=== PATIENT | male | born 2000 | race African-American/Black ===

== ENCOUNTER 2018-06-21 16:39 | Emergency (ER) | payer SELFPAY ==
[~2018-06-21] VITALS: Ht 180.3 cm; Wt 64.4 kg
[2018-06-21 18:15] VITALS: BP 123/58
--- NOTE | 2018-06-21 18:35 | PHYS DOC ---
Past Medical History Past Medical History: No Pertinent History Past Surgical History: No Surgical History Alcohol Use: None Drug Use: Marijuana Adult General Chief Complaint Chief Complaint: SEXUALLY TRANSMITTED DISEASE HPI HPI Patient is a 17 year old male who presents with having sex with a partner that has had trichomonis in the past and has continued having vaginal problems. Patient currently denies any urinary or genital symptoms. Review of Systems Review of Systems Constitutional: Denies fever or chills [] Eyes: Denies change in visual acuity, redness, or eye pain [] HENT: Denies nasal congestion or sore throat [] Respiratory: Denies cough or shortness of breath [] Cardiovascular: No additional information not addressed in HPI [] GI: Denies abdominal pain, nausea, vomiting, bloody stools or diarrhea [] : Denies dysuria or hematuria [] Musculoskeletal: Denies back pain or joint pain [] Integument: Denies rash or skin lesions [] Neurologic: Denies headache, focal weakness or sensory changes [] Endocrine: Denies polyuria or polydipsia [] All other systems were reviewed and found to be within normal limits, except as documented in this note. Current Medications Current Medications Current Medications Medications (Trade) Dose Ordered Sig/Emily Start Time Stop Time Status Last Admin Dose Admin Azithromycin (Zithromax) 1,000 mg 1X ONCE 06/21/18 19:00 06/21/18 19:01 DC 06/21/18 18:53 1,000 MG Ceftriaxone Sodium (Rocephin Im) 250 mg 1X ONCE 06/21/18 19:00 06/21/18 19:01 DC 06/21/18 18:54 250 MG Allergies Allergies Allergies Coded Allergies Type Severity Reaction Last Updated Verified No Known Drug Allergies 06/21/18 No Physical Exam Physical Exam Constitutional: Well developed, well nourished, no acute distress, non-toxic appearance. [] HENT: Normocephalic, atraumatic, bilateral external ears normal, oropharynx moist, no oral exudates, nose normal. [] Eyes: PERRLA, EOMI, conjunctiva normal, no discharge. [] Neck: Normal range of motion, no tenderness, supple, no stridor. [] Cardiovascular:Heart rate regular rhythm, no murmur [] Lungs & Thorax: Bilateral breath sounds clear to auscultation [] Abdomen: Bowel sounds normal, soft, no tenderness, no masses, no pulsatile masses. [] Skin: Warm, dry, no erythema, no rash. [] Back: No tenderness, no CVA tenderness. [] Extremities: No tenderness, no cyanosis, no clubbing, ROM intact, no edema. [] Neurologic: Alert and oriented X 3, normal motor function, normal sensory function, no focal deficits noted. [] Psychologic: Affect normal, judgement normal, mood normal. [] Current Patient Data Vital Signs Vital Signs Date Time Temp Pulse Resp B/P (MAP) Pulse Ox O2 Delivery O2 Flow Rate FiO2 06/21/18 18:15 98.8 62 16 123/58 (79) Room Air 98.8 EKG EKG [] Radiology/Procedures Radiology/Procedures [] Course & Med Decision Making Course & Med Decision Making Patient states he has had sex with a partner that has had Trichomonas in the past and that his partner has still had vaginal problems in vaginal discharge. The patient states that her keeps calling it a yeast infection but is not getting any better and he is worried that it is an STD. Patient currently denies any genital lesions, blisters, discharge, or urinary symptoms. Patient denies any fever or abdominal pain. Patient states he would like to be treated with antibiotics today in the ED. Patient's urine is sent off for STD testing. Patient is given azithromycin and Rocephin in the ED today. Patient is told he will be called in 48 hours if the results are positive. Patient is told to use safe sex. [] Dragon Disclaimer Dragon Disclaimer This electronic medical record was generated, in whole or in part, using a voice recognition dictation system. Departure Departure Impression: Primary Impression: Sexually transmitted disease Disposition: 01 HOME, SELF-CARE Condition: STABLE Referrals: NO PCP (PCP) Patient Instructions: Sexually Transmitted Diseases (STD) In Additional Instructions: Follow up with your primary care if needed. Practice safe sex. FARRAH IBARRA APRN Jun 21, 2018 18:35
[2018-06-21] MEDS: AZITHROMYCIN 250 MG TABLET. PO ONE (18:53)
[2018-06-21] MEDS: cefTRIAXone IM 250 MG VIAL IM ONE (18:54)
== END 2018-06-21 19:22 | disposition home or self-care (01) ==
LOC: ER 16:39
DX: A64 Unspecified sexually transmitted disease (principal)
CPT/HCPCS: 87491; 87591; 96372; 99284; J0696; Q0144

== ENCOUNTER 2018-08-20 04:09 | Emergency (ER) | payer SELFPAY ==
[~2018-08-20] VITALS: Ht 180.3 cm; Wt 63.5 kg
[2018-08-20 04:20] VITALS: BP 140/73
[2018-08-20 04:58] LABS: FECAL OB PT NEGATIVE (NEG)
[2018-08-20] MEDS ORDERED: HYDR10FO3 RC (05:13)
--- NOTE | 2018-08-20 05:13 | PHYS DOC ---
Past Medical History Past Medical History: No Pertinent History Past Surgical History: No Surgical History Alcohol Use: None Drug Use: Marijuana Adult General Chief Complaint Chief Complaint: OTHER COMPLAINTS HPI HPI Patient is a 17 year old male who presents with rectal pain. This started approximately 2 months ago after receiving prophylactic antibiotics due to patient's concern that he may have contracted an STD. Patient noted approximately a month ago he had several days where he noticed blood on the toilet paper after wiping. Patient denies any black tarry stools, denies anal receptive intercourse. He has not tried any home medicines. Denies any fever. All movements seem to make it worse. He reports some itching. Denies any fever, denies any weight change.[] Review of Systems Review of Systems Constitutional: Denies fever or chills [] Eyes: Denies change in visual acuity, redness, or eye pain [] HENT: Denies nasal congestion or sore throat [] Respiratory: Denies cough or shortness of breath [] Cardiovascular: No chest pain or palpitations[] GI: Denies abdominal pain, nausea, vomiting, bloody stools or diarrhea [] : Denies dysuria or hematuria [] Musculoskeletal: Denies back pain or joint pain [] Integument: Denies rash or skin lesions [] Neurologic: Denies headache, focal weakness or sensory changes [] Endocrine: Denies polyuria or polydipsia [] All other systems were reviewed and found to be within normal limits, except as documented in this note. Allergies Allergies Allergies Coded Allergies Type Severity Reaction Last Updated Verified No Known Drug Allergies 06/21/18 No Physical Exam Physical Exam Constitutional: Well developed, well nourished, no acute distress, non-toxic appearance. [] HENT: Normocephalic, atraumatic, bilateral external ears normal, oropharynx moist, no oral exudates, nose normal. [] Eyes: PERRLA, EOMI, conjunctiva normal, no discharge. [] Neck: Normal range of motion, no tenderness, supple, no stridor. [] Cardiovascular:Heart rate regular rhythm, no murmur [] Lungs & Thorax: Bilateral breath sounds clear to auscultation [] Abdomen: Bowel sounds normal, soft, no tenderness, no masses, no pulsatile masses. Rectal exam, no tears or fissures noted. No external hemorrhoids. Normal tone. Prostate is smooth, no enlargement.[] Skin: Warm, dry, no erythema, no rash. [] Back: No tenderness, no CVA tenderness. [] Extremities: No tenderness, no cyanosis, no clubbing, ROM intact, no edema. [] Neurologic: Alert and oriented X 3, normal motor function, normal sensory function, no focal deficits noted. [] Psychologic: Affect normal, judgement normal, mood normal. [] Current Patient Data Vital Signs Vital Signs Date Time Temp Pulse Resp B/P (MAP) Pulse Ox O2 Delivery O2 Flow Rate FiO2 08/20/18 04:20 98.3 66 16 140/73 (95) 99 Room Air 98.3 Lab Values Laboratory Tests Test 08/20/18 04:40 Stool Occult Blood Negative (NEG) EKG EKG [] Radiology/Procedures Radiology/Procedures [] Course & Med Decision Making Course & Med Decision Making Pertinent Labs and Imaging studies reviewed. (See chart for details) ED course: Patient arrived, was placed in bed, tolerated exam well. After the return lab findings, discussion was made with the patient regarding nose, and the plan forward. All questions were answered. Medical decision-making no evidence of GI bleeding, no evidence of significant external hemorrhoid, no evidence of visual.[] Dragon Disclaimer Dragon Disclaimer This electronic medical record was generated, in whole or in part, using a voice recognition dictation system. Departure Departure Impression: Primary Impression: Rectal pain Disposition: 01 HOME, SELF-CARE Condition: GOOD Referrals: NO PCP (PCP) Patient Instructions: Hemorrhoids Additional Instructions: Follow-up with your regular doctor in 2 days. If you do not have a regular doctor a list of local low-cost clinics has been provided to you. Follow-up with one of them in 2 days. Keep your rectum clean, clean it 4 times daily and after each bowel movement. Return to the ER if worsening pain, passing blood from her rectum, or any black/dark tarry looking stools, or any other concerns. Scripts Hydrocortisone/Pramoxine (PROCTOFOAM-HC 1%-1% FOAM) 10 Gm Foam 1 APPFUL RC BID, #10 GM Prov: ANDRIY SCHOFIELD DO 08/20/18 ANDRIY SCHOFIELD DO Aug 20, 2018 05:13
== END 2018-08-20 05:30 | disposition home or self-care (01) ==
LOC: ER 04:09
DX: K62.89 Other specified diseases of anus and rectum (principal); L29.9 Pruritus, unspecified
CPT/HCPCS: 82274; 99283